=== PATIENT | male | born 1985 | race Caucasian/White ===

== ENCOUNTER 2022-10-07 13:36 | Day surgery (SDC) | payer MEDICAID ==
[2022-10-07] MEDS ORDERED: Iopamidol 755 MG/ML 500 ML Multipack Bottle IVPUSH ONE (14:09)
[2022-10-07 15:01] LABS: BLOOD UREA NITROGEN,BUN 14 mg/dL (7.0-18.0); CARBON DIOXIDE,CO2 27.9 mmol/L (21.0-32.0); CHLORIDE,CL 98 mmol/L (98-107); GLUCOSE RANDOM 97 mg/dL (74-106); POTASSIUM,K 3.9 mmol/L (3.5-5.1); SODIUM,NA 136 mmol/L (136-148)
[2022-10-07 15:02] LABS: ESTIMATED GFR 116 mL/min (>60)
[2022-10-07 15:18] LABS: CORONAVIRUS COVID-19 NAA NEGATIVE (NEGATIVE); INFLUENZA A NAA NEGATIVE (NEGATIVE); INFLUENZA B NAA NEGATIVE (NEGATIVE)
[2022-10-07] MEDS ORDERED: Propofol 200 MG/20 ML SDV ONE (16:37)
[2022-10-07] MEDS ORDERED: Rocuronium Bromide 50 MG/5 ML Syringe ONE (16:37)
[2022-10-07] MEDS ORDERED: Dexmedetomidine 200 MCG/2 ML SDV ONE (16:37)
[2022-10-07] MEDS ORDERED: fentaNYL 250 MCG/5 ML SDV ONE (16:37)
[2022-10-07] MEDS ORDERED: Water For Injection, Sterile 20 ML ONE (16:38)
[2022-10-07] MEDS ORDERED: Ropivacaine 0.5% 5 MG/ML 30 ML SDV ONE (16:46)
[2022-10-07] MEDS ORDERED: Dexamethasone 4 MG/ML 5 ML MDV ONE (17:45)
[2022-10-07] MEDS ORDERED: Piperacillin/Tazobactam 3.375 GM in Sodium Chloride 0.9% 50 ML IV ONE (18:10)
[2022-10-07] MEDS ORDERED: Ketorolac 30 MG/ML SDV ONE (18:15)
[2022-10-07] MEDS ORDERED: Sugammadex Sodium 200 MG/2 ML VIAL ONE (18:15)
[2022-10-07] MEDS ORDERED: Ondansetron 4 MG/2 ML SDV ONE (18:15)
[2022-10-07] MEDS ORDERED: Bupivacaine 0.5% 30 ML SDV ONE (18:17)
[2022-10-07] MEDS ORDERED: HYDROmorphone 2 MG/ML Syringe IVPUSH PRN (18:46)
[2022-10-07] MEDS ORDERED: Acetaminophen 325 MG Tab PO PRN (18:46)
[2022-10-07] MEDS ORDERED: Ondansetron 4 MG/2 ML SDV IVPUSH PRN (18:46)
[2022-10-07] MEDS ORDERED: Sodium Chloride 0.9% 1,000 ML IV SCH (19:00)
[2022-10-07] MEDS: Piperacillin/Tazobactam 3.375 GM in Sodium Chloride 0.9% 50 ML IV SCH (19:23)
[2022-10-07] MEDS: Acetaminophen/HYDROcodone 325-5 MG Tab PO PRN (21:43)
[2022-10-08] MEDS: Piperacillin/Tazobactam 3.375 GM in Sodium Chloride 0.9% 50 ML IV SCH ×2 (02:07→10:07)
[2022-10-08] MEDS: Acetaminophen/HYDROcodone 325-5 MG Tab PO PRN (06:04)
== END 2022-10-08 12:06 | disposition home or self-care (01) ==
LOC: MW.ED 13:36 → MW.SDS 16:20 → MW.MS 19:16 → MW.SDS 10-08 12:06
PROVIDERS: ATTEND Surgery
DX: K35.80 Unspecified acute appendicitis (principal); F41.9 Anxiety disorder, unspecified; F32.A Depression, unspecified; F17.210 Nicotine dependence, cigarettes, uncomplicated; Z79.899 Other long term (current) drug therapy; Z98.890 Other specified postprocedural states; Z91.048 Other nonmedicinal substance allergy status; Z20.822 Contact with and (suspected) exposure to COVID-19
CPT/HCPCS: 0240U; 36415; 44970; 74177; 80053; 81003; 85025; 99284; A9270; J0131; J1100; J1170; J1885; J2405; J2543; J2704; J2795; J3010; J3490; J7030; Q9967; 00840; 64486